=== PATIENT | female | born 1995 | race Caucasian/White ===

== ENCOUNTER 2017-09-05 14:55 | Emergency (ER) | payer SELFPAY ==
[2017-09-05 14:57] VITALS: BP 132/85; PULSE 81; RESP 15; TEMP 98.4; O2SAT 95
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
--- NOTE | 2017-09-05 18:37 | RADRPT ---
EXAM DATE/TIME: 09/05/2017 18:05 [facility] COMPARISON: No previous studies available for comparison. INDICATIONS : Pain in chest, shortness of breath. MEDICAL HISTORY : None. SURGICAL HISTORY : None. ENCOUNTER: Initial ACUITY: 1 day PAIN SCORE: 0/10 LOCATION: Bilateral chest FINDINGS: A single view of the chest demonstrates the lungs to be symmetrically aerated without evidence of mas s, infiltrate or effusion. The cardiomediastinal contours are unremarkable. Osseous structures are intact. CONCLUSION: No acute disease. Luther Billingsley MD on September 05, 2017 at 18:35 Board Certified Radiologist. This report was verified electronically.
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
[2017-09-05] MEDS ORDERED: IBUP800T23 PO (19:31)
[2017-09-05] MEDS ORDERED: CYCL1TAB29 PO (19:31)
== END 2017-09-05 19:53 | disposition home or self-care (01) ==
LOC: NEPD 14:55
DX: S16.1XXA Strain of muscle, fascia and tendon at neck level, initial encounter (principal); S20.219A Contusion of unspecified front wall of thorax, initial encounter; V86.59XA Driver of other special all-terrain or other off-road motor vehicle injured in nontraffic accident, initial encounter
CPT/HCPCS: 71010; 72125; 99284